=== PATIENT | male | born 1980 | race Caucasian/White ===

== ENCOUNTER 2023-06-12 09:38 | Emergency (ER) | payer BC, SELFPAY ==
[2023-06-12 10:04] VITALS: BP 156/96
--- NOTE | 2023-06-12 10:08 | ED.GENMED ---
History of Present Illness
General
Chief Complaint: Chest Pain
Time Seen by Provider: 06/12/23 10:08
Travel History
Have you had any contact with someone who has COVID-19?: No
Do you have any symptoms of coronavirus? Fever > 100 degrees, chills, cough, shortness of breath, sore throat, loss of taste or smell, muscle aches, or headache?: No
History of Present Illness
History of Present Illness:
HPI: Left-sided chest pain over the past couple of weeks. The symptoms do not worsen with exertion. He never had any shortness of breath or diaphoresis. He saw primary care doctor about a week ago and told him to come in here if symptoms
persisted. He does not have a first-degree family history of premature coronary disease, does not have high blood pressure (but did have an abnormally high blood pressure reading in the 140s a week ago at the [facility]; has not been to a primary care
doctor in about 5 to 10 years before then), no diabetes, no smoking history, no hyperlipidemia.
EXAM:
GENERAL: Well appearing in no distress, mild hypertension noted
HEENT: Moist oral mucosa
CARDIOVASCULAR: No murmurs, normal heart rate, regular rhythm, No chest wall tenderness
PULMONARY: No respiratory distress, breath sounds are clear and equal
ABDOMEN: Soft with no peritoneal signs, no tenderness
NEUROLOGIC: Excellent strength all extremities, no coordination deficits
PSYCHIATRIC: Appropriate mental status, normal insight and judgement
EXTREMITIES: Nontender, no edema, moves all extremities equally
SKIN: No rash, no lesions
TIME OF INITIAL ENCOUNTER: 10:15 AM
NUMBER AND COMPLEXITY OF PROBLEMS ADDRESSED AT THE ENCOUNTER
� Chronic conditions affecting care: Denies past medical history
� Acute Exacerbation and/or Progression of Chronic Illness: This is an acute problem
� Differential Diagnosis includes: Undiagnosed high blood pressure, ACS less likely, stress/anxiety, musculoskeletal etiology
AMOUNT AND/OR COMPLEXITY OF DATA TO BE REVIEWED AND ANALYZED
� I performed an independent evaluation of and my interpretation is:
EKG: Sinus 78, no acute ST abnormality no old to compare
CT:
X-rays: Chest x-ray shows no acute abnormality
Laboratory Studies: CBC, chemistries and troponin unremarkable
Other:
� Review of other/old records: No old records available for [facility] in [facility]
� Clinical information was obtained by an independent historian: None needed
� Prescriptions/Medications Considered but not given:
� Further testing considered but not performed:
RISK OF COMPLICATIONS AND/OR MORBIDITY OR MORTALITY OF PATIENT MANAGEMENT
� Social determinants of health affecting care: Lives at home
� Discussion with other providers:
� Escalation of care including admission/observation vs risk of discharge considered: The patient has had 2 weeks of symptoms with normal EKG. Troponin is checked as well as chest x-ray. No significant risk factors for CAD
however the patient does have high blood pressure readings. Other than high blood pressure reading, workup is relatively unremarkable. Will use chest pain hotline for low risk cardiology follow-up. I reassessed patient at 12 PM, the patient is
very comfortable in appearance.
Phy Exam
Physical Exam
Physical Exam:
See HPI
Scores
Heart Score for Chest Pain Patients
STEMI patient?: Not applicable
Course
Orders/Labs/Results
Orders:
Orders
06/12/23 10:06
Electrocardiogram (*1) Urgent
Reason for Study: Other
Other Reason for Exam: chest discomfort
06/12/23 10:07
EKG- Treatment ONCE
06/12/23 10:16
CR Chest - 2 Views Urgent
Comment:
Reason For Exam: L pain
06/12/23 10:39
Complete Blood Count/With Diff Urgent
Comprehensive Metabolic Panel Urgent
Troponin I Urgent
Abnormal Lab Results
06/12/23
10:39
MCH 31.9 H pg
(27.0-31.0)
Monocytes % 12.1 H %
(1.7-9.3)
Glucose 101 H mg/dl
(70-99)
06/12/23 10:39
06/12/23 10:39
Vital Signs
Initial and Last Documented VS:
Initial Vital Signs
Temp Pulse Resp BP Pulse Ox
98.0 F 79 18 156/96 99
06/12/23 10:04 06/12/23 10:04 06/12/23 10:04 06/12/23 10:04 06/12/23 10:04
Last Documented Vital Signs
Temp Pulse Resp BP Pulse Ox
98.0 F 79 14 141/89 96
06/12/23 10:04 06/12/23 11:30 06/12/23 11:30 06/12/23 11:04 06/12/23 11:30
*Critical Care Note
Total Time (30-74mins, 75-104mins- exclusive of procedures): Not Applicable
ED Attending Note
-
Portions of this chart may have been created with voice recognition software.� Occasional wrong word or��sound alike� substitutions may have occurred due to the inherent limitations of voice recognition software.
Discharge Plan
Departure
Patient Disposition: Home (Routine Discharge)
Date of Disposition: 06/12/23
Time of Disposition: 11:57
Patient with high blood pressure during this ER visit?: Yes
Discharge Problem:
Chest pain
Instructions: Chest Pain [facility] Follow Up, BLOOD PRESSURE
Referrals:
Sharifa Marina NP [Family Provider] -
Drake Issa MD [Active] - Follow up in 2-3 days
Activity Restrictions/Additional Instructions:
The cause of your pain is unclear. EKG, cardiac blood work, and other basic labs normal. Your blood pressure was slightly high with initial systolic of 156 and then repeat was down to 141. I recommend PMD follow-up. You should also be receiving
a phone call from somebody from [facility] for follow-up. Return here if worse.
Interventions
Interventions:
*Risk Screen - Suicide Last Done: 06/12/23 10:35
*General Assessment Last Done: 06/12/23 10:35
*Neglect/Abuse Screening Last Done: 06/12/23 10:35
ED- Fall Risk Assessment Last Done: 06/12/23 10:35
*ED COVID-19 Vaccine History Last Done: 06/12/23 10:35
ED- Cardiac Assessment Last Done: 06/12/23 10:35
--- NOTE | 2023-06-12 10:10 | EDRN ---
Dr. Lino in room w/ pt at this time.
[2023-06-12 10:26] VITALS: BP 155/92
[2023-06-12 10:35] VITALS: BP 155/92; BMI 27.3
[2023-06-12 10:53] LABS: % Eosinophils 1.7 % (0-6); % Immature Granulocytes 0.2 % (0-0.5); % Lymphocytes 30.6 % (20.5-51.1); % Monocytes 12.1 % (1.7-9.3); % Neutrophils 54.4 % (42.2-75.2); Absolute Basophils 0.1 10^3/uL (0-0.2); Absolute Eosinophils 0.1 10^3/uL (0-0.7); Absolute Lymphocytes 1.6 10^3/uL (1.2-3.4); Absolute Monocytes 0.6 10^3/uL (0.1-0.6); Absolute Neutrophils 2.8 10^3/uL (1.4-6.5); Hematocrit 42.9 % (39.0-52.0); Hemoglobin 15.8 g/dL (13.0-18.0); Mean Corp Hgb Conc. 36.8 g/dL (33.0-37.0); Mean Corpuscular Hgb 31.9 pg (27.0-31.0); Mean Corpuscular Volume 86.7 fL (80.0-94.0); Mean Platelet Volume 9.2 fL (7.4-10.4); Nucleated Red Blood Cells % 0 % (-); Platelet Count 229 10^3/uL (130-400); Red Blood Cell Count 4.95 10^6/uL (4.70-6.10); Red Cell Dist. Width 11.5 % (11.5-14.5); White Blood Cell Count 5.2 10^3/uL (4.8-10.8)
[2023-06-12 10:59] LABS: ALT (SGPT) 27 U/L (0-50); AST (SGOT) 28 U/L (17-59); Albumin 4.8 g/dl (3.5-5.0); Alkaline Phosphatase 55 U/L (38-126); Blood Urea Nitrogen 13 mg/dl (9-20); Calcium 9.3 mg/dl (8.4-10.2); Carbon Dioxide 27 mmol/L (22-30); Chloride 104 mmol/L (98-107); Glucose 101 mg/dl (70-99); Potassium 3.8 mmol/L (3.5-5.1); Sodium 137 mmol/L (135-145); Total Bilirubin 0.8 mg/dl (0.2-1.3); eGFR > 60.00
[2023-06-12 11:04] VITALS: BP 141/89
[2023-06-12 11:11] LABS: Troponin I < 0.012 ng/ml
[2023-06-12 12:00] VITALS: BP 131/82
== END 2023-06-12 12:12 | disposition home or self-care (01) ==
LOC: EMR 09:38
PROVIDERS: EMERGENCY PHYSICIAN Emergency Medicine; FAMILY PHYSICIAN Nurse Practitioner Family
DX: R07.89 Other chest pain (principal); R03.0 Elevated blood-pressure reading, without diagnosis of hypertension
CPT/HCPCS: 99285; 71046; 80053; 84484; 85025; 93005

== ENCOUNTER → 2023-07-20 08:22 | Outpatient (REF) | payer BC, SELFPAY | LOC: RCS 08:22 | PROVIDERS: ATTENDING PHYSICIAN Internal Medicine Interventional Cardiology; FAMILY PHYSICIAN Nurse Practitioner Family | DX: R07.89 Other chest pain (principal) | CPT/HCPCS: 93017; 93350 ==